=== PATIENT | male | born 1965 | race African-American/Black ===

== ENCOUNTER 2021-08-04 12:08 | Emergency (ER) | payer MEDICAID ==
[~2021-08-04] VITALS: Ht 177.8 cm; Wt 79.0 kg
[2021-08-04] MEDS ORDERED: IBUPROFEN 600MG TABLET PO ONE (12:30)
[2021-08-04 12:54] VITALS: BP 143/94
[2021-08-04] MEDS ORDERED: IBUP-2030 MT (14:12)
[2021-08-04] MEDS ORDERED: HYDR-4001 MT (14:12)
== END 2021-08-04 15:53 | disposition home or self-care (01) ==
LOC: ER 12:44
DX: S82.401A Unspecified fracture of shaft of right fibula, initial encounter for closed fracture (principal); Z86.59 Personal history of other mental and behavioral disorders; V13.4XXA Pedal cycle driver injured in collision with car, pick-up truck or van in traffic accident, initial encounter; Y93.89 Activity, other specified; Y92.89 Other specified places as the place of occurrence of the external cause; Y99.8 Other external cause status
CPT/HCPCS: 29505; 73552; 73590; 73610; 99284; Z7610